=== PATIENT | male | born 1990 | race Hispanic/Latino ===

== ENCOUNTER 2019-10-19 11:22 | Day surgery (SDC) ==
[~2019-10-19 11:22] MED LIST: Iopamidol-370 76% 500 ML 1 ML ONE
[2019-10-19] MEDS ORDERED: Ondansetron PF 4 MG/2 ML Vial ONE ×2 (11:39→12:20)
[2019-10-19 12:20] LABS: Bilirubin Negative (Negative); Blood, Urine Negative (Negative); Clarity Clear (Clear); Glucose, Urine (Dipstick) Normal (Negative); Leukocyte Negative Leu/uL (Negative); Nitrite Negative (Negative); Protein, Urine (Dipstick) Negative (Neg-Trace); Urobilinogen Normal mg/dL (Less than 2)
[2019-10-19] MEDS ORDERED: PHENYLEPHRINE-NS 100 MCG/ML 10 ML SYRINGE ONE (12:20)
[2019-10-19] MEDS ORDERED: PROPOFOL 200 MG/20 ML VIAL ONE (12:20)
[2019-10-19] MEDS ORDERED: Rocuronium Bromide 10 MG/ML (10ML VIAL) ONE (12:20)
[2019-10-19] MEDS ORDERED: Succinylcholine Chloride 20 MG/ML 10 ml SYRINGE FS ONE (12:20)
[2019-10-19] MEDS ORDERED: Dexamethasone 20 MG/5 ML VIAL ONE (12:20)
[2019-10-19] MEDS ORDERED: Glycopyrrolate 0.2 MG/ML 5 ML SYRINGE ONE (12:20)
[2019-10-19] MEDS ORDERED: Lidocaine 1% PF 5 ML VIAL ONE (12:20)
[2019-10-19 12:29] LABS: ALT (SGPT) 39 U/L (8-55); AST (SGOT) 25 U/L (5-34); Albumin 4.5 g/dL (3.5-5.0); Alkaline Phosphatase 78 U/L (40-110); Anion Gap 15 mmol/L (10-20); BUN (Urea Nitrogen) 12 mg/dL (8.9-20.6); Bilirubin, Total 1.4 mg/dL (0.2-1.2); Calc. Creatinine Clearance 0 mL/min (70-130); Calcium 9.5 mg/dL (7.8-10.44); Carbon Dioxide 23 mmol/L (22-29); Chloride 102 mmol/L (98-107); Estimated GFR-MDRD Greater than 90; Globulin 3.7 g/dL (2.4-3.5); Glucose 110 mg/dL (70-105); Lipase 7 U/L (8-78); Potassium 3.5 mmol/L (3.5-5.1); Protein, Total 8.2 g/dL (6.0-8.3); Sodium 136 mmol/L (136-145)
[2019-10-19 12:31] LABS: #Lymphocytes 0.4 thou/uL (1.20-3.40); #Neutrophils 3.8 thou/uL (1.40-6.50); %Basophils 0.4 % (0.0-1.0); %Eosinophils 0.2 % (0.0-10.0); %Lymphocytes 9.4 % (21.0-51.0); %Monocytes 0.3 % (0.0-10.0); %Neutrophils 89.7 % (42.0-75.0); Hemoglobin 13.6 g/dL (14.0-18.0); Mean Corpuscular HGB CONC 33.4 g/dL (32.0-36.0); Mean Corpuscular Hemoglobin 28.7 pg (27.0-31.0); Mean Corpuscular Volume 85.9 fL (78.0-98.0); Mean Platelet Volume 7.8 fL (7.4-10.4); Platelet Count 187 thou/uL (130-400); RBC Distribution Width 12.5 % (11.5-14.5); Red Blood Cell (RBC) Count 4.75 mill/uL (4.70-6.10); White Blood Cell (WBC) Count 4.2 thou/uL (4.8-10.8)
[2019-10-19] MEDS ORDERED: Piperacillin/Tazobactam 3.375 GM VIAL ONE (12:33)
--- NOTE | 2019-10-19 12:48 | RAD ---
EXAM: Portable chest PROVIDED CLINICAL HISTORY: Fever COMPARISON: None FINDINGS: Cardiac and mediastinal silhouette is within normal limits. No focal consolidation, pleural fluid or pneumothorax evident. IMPRESSION: No evidence for an acute cardiopulmonary process.
--- NOTE | 2019-10-19 13:13 | CT ---
EXAM: CT abdomen and pelvis with IV contrast PROVIDED CLINICAL HISTORY: Nausea and vomiting COMPARISON: None FINDINGS: The visualized lung bases are free of significant opacity. The solid abdominal organs demonstrate an unremarkable CT appearance. There is no bowel dilatation, free fluid or free air apparent. The appendix is of predominantly aneudy l caliber. The terminal aspect of the appendix is mildly dilated measuring about 9 mm. There is apparent luminal fluid and mucosal enhancement with possible subtle surrounding fat stranding. No regional lymph node enlargement apparent. The regional major vascular structures appear unremarkable. The osseous structures demonstrate no concerning lytic or blastic lesions. IMPRESSION: Findings equivocal for early acute appendicitis.
[2019-10-19] MEDS ORDERED: Bupivacaine 0.25% HCL 30 ML VIAL ONE (13:50)
[2019-10-19] MEDS ORDERED: Lidocaine 1% w/Epinephrine 1:100K 20 ML VIAL ONE (13:50)
[2019-10-19] MEDS ORDERED: Fentanyl 100 MCG/2 ML VIAL ONE (13:59)
[2019-10-19] MEDS ORDERED: Midazolam HCl 2 mg/2 ml Vial ONE (14:09)
[2019-10-19] MEDS ORDERED: Piperacillin/Tazobactam 1.125 GM, Admixture Fee 1 EACH in Sodium Chloride 0.9% 100 ML IVPB SCH (14:15)
--- NOTE | 2019-10-19 14:15 | HP ---
CHIEF COMPLAINT: Right lower quadrant pain. HISTORY OF PRESENT ILLNESS: This is a 28-year-old male with a history of pain in his diffuse abdomen, it has more localized to the right lower quadrant. He was febrile and having nausea and vomiting on presentation, that has improved now. His pain is slightly improved. CT scan of his abdomen reveals questionable appendicitis. PAST MEDICAL HISTORY: Denies. PAST SURGICAL HISTORY: Denies. MEDICATIONS: None. ALLERGIES: NO KNOWN DRUG ALLERGIES. SOCIAL HISTORY: No smoking or alcohol or other drugs. REVIEW OF SYSTEMS: Ten-system review of systems is otherwise negative unless described above. PHYSICAL EXAMINATION: HEENT: Sclerae are anicteric. Oropharynx clear. NECK: No lymphadenopathy. CHEST: Clear. HEART: Increased rate, regular rhythm. ABDOMEN: Soft. Tender in the right lower quadrant with localized guarding. No rebound. No abdominal hernias. EXTREMITIES: No ischemia or edema to extremities. LABORATORY DATA: White blood cell count is 4. He has an elevated lactate. Creatinine is normal. IMAGING STUDIES: CT scan is equivocal for appendicitis. ASSESSMENT: Acute appendicitis based on exam and equivocal findings on CT. PLAN: Laparoscopic appendectomy. Risks, benefits, and alternatives were discussed. He gives consent. We will do this today. Job ID: [id number]
[2019-10-20 10:26] LABS: SARS-CoV-2 MS2 Positive; SARS-CoV-2 N Gene Negative; SARS-CoV-2 S Gene Negative; SARS-CoV-2 orf1ab Negative
--- NOTE | 2019-10-20 10:28 | OP ---
DATE OF PROCEDURE: 10/19/2019 PREOPERATIVE DIAGNOSIS: Acute appendicitis. POSTOPERATIVE DIAGNOSIS: Acute appendicitis. PROCEDURE PERFORMED: Laparoscopic appendectomy. ANESTHESIA: General. ESTIMATED BLOOD LOSS: Minimal. COMPLICATIONS: None. SPECIMEN: Appendix. FINDINGS: Appendicitis. DESCRIPTION OF PROCEDURE: The patient was taken to the operating room and laid supine on the operating table. After general anesthetic was obtained, a Jeong was placed. The abdomen was shaved, prepped, and draped in a sterile fashion. A curved incision was made below the umbilicus. Cautery was used to dissect down to and score the fascia. The abdominal cavity was entered bluntly using a Li clamp. A holding stitch of PDS was placed on each side of the fascia. A Ilya trocar was placed. High-flow pneumoperitoneum was obtained. A suprapubic 5-mm port and a left lower quadrant 5-mm port were placed under direct visualization. The cecum was rolled over to reveal acute appendicitis. A window was made at the base of the appendix and mesoappendix. A laparoscopic stapler was fired across the base of the appendix. A vascular reload was fired across the mesoappendix. The appendix was placed in the EndoCatch bag and brought out through the Ilya. There was no bleeding in the abdomen. The right lower quadrant and pelvis was irrigated using sterile solution. All port sites were infiltrated using local anesthesia. All ports were removed under direct visualization without bleeding. PDS was used to close the fascial defect below the umbilicus. All incisions were irrigated and closed using 4-0 Monocryl and Dermabond. The patient was sent to Recovery in stable condition. All instrument counts, needle counts, and lap counts were correct. Job ID: [id number]
== END 2019-10-19 17:25 | disposition home or self-care (01) ==
LOC: ERS 11:22 → SDC 15:00
PROVIDERS: ATTEND Surgery
PROC: 0DTJ4ZZ Resection of Appendix, Percutaneous Endoscopic Approach (ICD-10-PCS; principal; 2019-10-19)
DX: K35.80 Unspecified acute appendicitis (principal); F17.200 Nicotine dependence, unspecified, uncomplicated
CPT/HCPCS: 36415; 71045; 74177; 80053; 81003; 83605; 83690; 85025; 87040; 87077; 87086; 87149; 87186; 87635; 87804; 88304; 93005; J0500; J1100; J2001; J2250; J2405; J2543; J2704; J3010; J3490; Q9967; S0020; U0003

== ENCOUNTER 2022-03-23 14:58 | Emergency (ER) ==
[2022-03-23 17:06] LABS: #Basophils 0.1 thou/uL (0.0-0.2); #Eosinphils 0.2 thou/uL (0.0-0.7); #Monocytes 0.4 thou/uL (0.11-0.59); #Neutrophils 3.9 thou/uL (1.40-6.50); %Basophils 1.1 % (0.0-1.0); %Lymphocytes 30.8 % (21.0-51.0); %Monocytes 6.6 % (0.0-10.0); %Neutrophils 58.5 % (42.0-75.0); Hemoglobin 12.7 g/dL (14.0-18.0); Mean Corpuscular HGB CONC 32.9 g/dL (32.0-36.0); Mean Platelet Volume 7.7 fL (7.4-10.4); Platelet Count 211 thou/uL (130-400); RBC Distribution Width 11.8 % (11.5-14.5); White Blood Cell (WBC) Count 6.6 thou/uL (4.8-10.8)
[2022-03-23 17:25] LABS: ALT (SGPT) 36 U/L (8-55); AST (SGOT) 29 U/L (5-34); Albumin 4.5 g/dL (3.5-5.0); Alkaline Phosphatase 64 U/L (40-110); Anion Gap 10 mmol/L (10-20); BUN (Urea Nitrogen) 17 mg/dL (8.9-20.6); Bilirubin, Total 0.5 mg/dL (0.2-1.2); Calc. Creatinine Clearance 0 mL/min (70-130); Calcium 9.2 mg/dL (7.8-10.44); Carbon Dioxide 27 mmol/L (22-29); Chloride 107 mmol/L (98-107); Estimated GFR 120; Globulin 3.5 g/dL (2.4-3.5); Glucose 106 mg/dL (70-105); Potassium 4.8 mmol/L (3.5-5.1); Sodium 139 mmol/L (136-145)
== END 2022-03-23 18:26 | disposition home or self-care (01) ==
LOC: ERS 14:58
DX: R07.9 Chest pain, unspecified (principal); R20.2 Paresthesia of skin
CPT/HCPCS: 36415; 71045; 80053; 84484; 85025; 93005